=== PATIENT | male | born 1960 | race Two or more races ===

== ENCOUNTER 2018-07-09 22:57 | Emergency (ER) | payer SELFPAY ==
[~2018-07-09] VITALS: Ht 172.7 cm; Wt 79.4 kg
--- NOTE | 2018-07-09 23:24 | Emergency Room Report ---
History of Present Illness General Chief Complaint: Medical Clearance Source: Patient Present Illness HPI Is a 57-year-old male with a history hypertension. He was brought in by police for medical clearance. Because of his high blood pressure there brought him in. He denies any complaint. It is compliant with his medication. No pain. Allergies: Coded Allergies: No Known Allergies (Unverified , 07/09/18) Patient History Past Medical History: see triage record, old chart reviewed, HTN Past Surgical History: other Pertinent Family History: none Social History: Denies: smoking Immunizations: other Reviewed Nursing Documentation: PMH: Agreed; PSxH: Agreed Nursing Documentation-PMH Past Medical History: No Stated History Review of Systems Eye: Denies: eye pain, blurred vision ENT: Denies: ear pain, nose congestion, throat swelling Respiratory: Denies: cough, shortness of breath Cardiovascular: Denies: chest pain, palpitations Gastrointestinal: Denies: abdominal pain, diarrhea, nausea, vomiting Musculoskeletal: Denies: back pain, joint pain Skin: Denies: rash Neurological: Denies: headache, numbness Endocrine: Denies: increased thirst, increased urine Hematologic/Lymphatic: Denies: easy bruising All Other Systems: negative except mentioned in HPI Physical Exam Vital Signs Date Time Temp Pulse Resp B/P (MAP) Pulse Ox O2 Delivery O2 Flow Rate FiO2 07/09/18 22:59 98.2 72 16 122/80 98 Room Air 98.2 vitals normal Sp02 EP Interpretation: reviewed, normal General Appearance: well appearing, no apparent distress, alert Head: normocephalic, atraumatic Eyes: bilateral eye PERRL, bilateral eye EOMI ENT: hearing grossly normal, normal pharynx Neck: full range of motion, supple, no meningismus Respiratory: chest non-tender, lungs clear, normal breath sounds Cardiovascular #1: regular rate, rhythm, no murmur Gastrointestinal: normal bowel sounds, non tender, no mass, no organomegaly, no bruit, non-distended Musculoskeletal: back normal, gait/station normal, normal range of motion Psychiatric: mood/affect normal Skin: warm/dry Medical Decision Making Diagnostic Impression: Primary Impression: Examination, medicolegal reason ER Course Patient here for medical clearance. No complaint. Blood pressure stable. Last Vital Signs Date Time Temp Pulse Resp B/P (MAP) Pulse Ox O2 Delivery O2 Flow Rate FiO2 07/09/18 22:59 98.2 72 16 122/80 98 Room Air 98.2 Status: unchanged Disposition: D/C TO LAW ENFORCEMENT IN [facility] Condition: Stable Additional Instructions: Follow-up with your doctor as needed. Take your medication. Return of worse. RIC PARRA M.D. Jul 09, 2018 23:23
[2018-07-09 23:29] VITALS: BP 122/80
== END 2018-07-09 23:30 ==
LOC: EMR 23:25
DX: Z04.9 Encounter for examination and observation for unspecified reason (principal); I10 Essential (primary) hypertension
CPT/HCPCS: 99283